=== PATIENT | female | born 1985 | race Caucasian/White ===

== ENCOUNTER 2017-08-16 17:21 | Emergency (ER) | payer SELFPAY ==
[2017-08-16 17:28] VITALS: BP 116/73; PULSE 103; RESP 22; TEMP 99; O2SAT 98
[2017-08-16 17:38] VITALS: BP 132/62; PULSE 103; RESP 18; O2SAT 100
[2017-08-16] MEDS ORDERED: VENTAER INH ×2 (17:50→18:45)
[2017-08-16 17:51] VITALS: O2SAT 99
[2017-08-16] MEDS: RESP: ALBUTEROL 2.5 MG/IPRATROPIUM 0.5 MG NEB (SCH) INH ×2 (17:57→17:58)
[2017-08-16] MEDS ORDERED: methylPREDNISolone SOD SUCC 125 MG/2 ML VIAL IV PUSH ONE (18:00)
[2017-08-16] MEDS ORDERED: SODIUM CHLORIDE 0.9% FLUSH 10 ML FLUSH IVF PRN (18:00)
--- NOTE | 2017-08-16 18:00 | PD ---
HPI Chief Complaint: Respiratory Symptoms Time Seen by Provider: 17:49 Travel History International Travel<30 days: No Contact w/Intl Traveler<30days: No Traveled to known affect area: No History of Present Illness HPI 32 y/o female presents with shortness of breath and wheezing over the past couple of days. She states she has been using her inhaler frequently without improvement. She states she currently does not have a primary doctor and does not know vertigo. She states she denies any fever or other concurrent complaints other than cough. She states she feels worse when she moves around. She denies other modifying factors. Quality is wheezing. Severity is progressive. Duration is over the past couple of days. PFSH Past Medical History Asthma: Yes Hepatitis: Yes (c) ?: Unknown Social History Alcohol Use: Yes (on occasion) Tobacco Use: Yes (1 ppd) Substance Use: Yes (THC on occasion) Allergies-Medications (Allergen,Severity, Reaction): Coded Allergies: Penicillins (Verified Allergy, Unknown, 08/16/17) Reported Meds & Prescriptions Reported Meds & Active Scripts Active Prednisone 50 Mg Tab 50 Mg PO DAILY 5 Days Ventolin Hfa 18 GM Inh (Albuterol Sulfate) 90 Mcg/Act Aer 1 Puff INH Q4H PRN Review of Systems Except as stated in HPI: all other systems reviewed are Neg Physical Exam Narrative GENERAL: 32 y/o female in no apparent distress SKIN: Focused skin assessment warm/dry. HEAD: Atraumatic. Normocephalic. EYES: Pupils equal and round. No scleral icterus. No injection or drainage. ENT: No nasal bleeding or discharge. Mucous membranes pink and moist. NECK: Trachea midline. CARDIOVASCULAR: Regular rate and rhythm. RESPIRATORY: No accessory muscle use. Inspiratory and expiratory wheezing bilaterally. GASTROINTESTINAL: Abdomen soft, non-tender, nondistended. MUSCULOSKELETAL: No obvious deformities. No clubbing. No cyanosis. No edema. NEUROLOGICAL: Awake and alert. No obvious cranial nerve deficits. Motor grossly within normal limits. Normal speech. PSYCHIATRIC: Appropriate mood and affect; insight and judgment normal. Data Data Last Documented VS Vital Signs Date Time Temp Pulse Resp B/P (MAP) Pulse Ox O2 Delivery O2 Flow Rate FiO2 08/16/17 18:05 18 98 Room Air 08/16/17 17:51 21 08/16/17 17:38 103 08/16/17 17:28 99.0 Orders Orders Complete Blood Count With Diff (08/16/17 17:52) Basic Metabolic Panel (Bmp) (08/16/17 17:52) Influenzae A/B Antigen (08/16/17 17:52) Iv Access Insert/Monitor (08/16/17 17:52) Ecg Monitoring (08/16/17 17:52) Oximetry (08/16/17 17:52) Chest, Pa & Lat (08/16/17 17:52) Sodium Chloride 0.9% Flush (Ns Flush) (08/16/17 18:00) Methylprednisolone So Succ Inj (Solumedr (08/16/17 18:00) Albuterol-Ipratropium Neb (Duoneb Neb) (08/16/17 18:00) Labs Laboratory Tests Test 08/16/17 18:07 White Blood Count 7.0 TH/MM3 Red Blood Count 4.64 MIL/MM3 Hemoglobin 13.4 GM/DL Hematocrit 39.7 % Mean Corpuscular Volume 85.5 FL Mean Corpuscular Hemoglobin 28.8 PG Mean Corpuscular Hemoglobin Concent 33.7 % Red Cell Distribution Width 13.2 % Platelet Count 303 TH/MM3 Mean Platelet Volume 8.4 FL Neutrophils (%) (Auto) 45.3 % Lymphocytes (%) (Auto) 39.9 % Monocytes (%) (Auto) 7.4 % Eosinophils (%) (Auto) 6.2 % Basophils (%) (Auto) 1.2 % Neutrophils # (Auto) 3.1 TH/MM3 Lymphocytes # (Auto) 2.8 TH/MM3 Monocytes # (Auto) 0.5 TH/MM3 Eosinophils # (Auto) 0.4 TH/MM3 Basophils # (Auto) 0.1 TH/MM3 CBC Comment DIFF FINAL Differential Comment Blood Urea Nitrogen 9 MG/DL Creatinine 0.58 MG/DL Random Glucose 84 MG/DL Calcium Level 8.5 MG/DL Sodium Level 144 MEQ/L Potassium Level 3.8 MEQ/L Chloride Level 113 MEQ/L Carbon Dioxide Level 24.6 MEQ/L Anion Gap 6 MEQ/L Estimat Glomerular Filtration Rate 120 ML/MIN MDM Medical Decision Making Medical Screen Exam Complete: Yes Emergency Medical Condition: Yes Medical Record Reviewed: Yes (Past history confirmed) Interpretation(s) CBC & BMP Diagram 08/16/17 18:07 Calcium Level 8.5 cxr no acute Differential Diagnosis Asthma, pneumonia, pneumothorax, URI Narrative Course We will check blood work, chest x-ray and dose with duonebs and Solu-Medrol and reevaluate ED workup with asthma exacerbation, patient denies any new complaints and states that they are feeling better. Patient happy with care, all questions answered. Patient knows that follow up is incumbent on them and to return to the emergency room immediately if new or worsening symptoms develop. Patient given strict return precautions, vitals reviewed and are normal, agrees to further workup as an outpatient. Diagnosis Primary Impression: Asthma exacerbation Qualified Codes: J45.901 - Unspecified asthma with (acute) exacerbation Patient Instructions: General Instructions Additional Instructions: return as needed, follow with primary this week, albuterol as needed Med/Other Pt SpecificInfo: Prescription(s) given Scripts Prednisone (Prednisone) 50 Mg Tab 50 MG PO DAILY for 5 Days, #5 TAB 0 Refills Prov: Marla Bourne MD 08/16/17 Albuterol 18 GM Inh (Ventolin Hfa 18 GM Inh) 90 Mcg/Act Aer 1 PUFF INH Q4H Y for SHORTNESS OF BREATH, #1 INHALER 0 Refills Prov: Marla Bourne MD 08/16/17 Disposition: 01 DISCHARGE HOME Condition: Stable Marla Bourne MD Aug 16, 2017 18:00
[2017-08-16 18:05] VITALS: RESP 18; O2SAT 98
[2017-08-16 18:25] LABS: AUTOMATED NEUTROPHIL # 3.1 TH/MM3 (1.8-7.7); BASOPHIL # 0.1 TH/MM3 (0-0.2); BASOPHIL % 1.2 % (0.0-2.0); EOSINOPHIL # 0.4 TH/MM3 (0-0.4); EOSINOPHIL % 6.2 % (0.0-4.0); HEMATOCRIT 39.7 % (35.0-46.0); HEMOGLOBIN 13.4 GM/DL (11.6-15.3); LYMPH % 39.9 % (9.0-44.0); LYMPHOCYTE # 2.8 TH/MM3 (1.0-4.8); MEAN CELL VOLUME 85.5 FL (80.0-100.0); MEAN CORPUSCULAR HEMOGLOBIN 28.8 PG (27.0-34.0); MEAN CORPUSCULAR HGB CONC 33.7 % (32.0-36.0); MEAN PLATELET VOLUME 8.4 FL (7.0-11.0); MONO % 7.4 % (0.0-8.0); MONOCYTE # 0.5 TH/MM3 (0-0.9); NEUT % 45.3 % (16.0-70.0); PLATELET COUNT 303 TH/MM3 (150-450); RED BLOOD COUNT 4.64 MIL/MM3 (4.00-5.30); RED CELL DISTRIBUTION WIDTH 13.2 % (11.6-17.2)
[2017-08-16 18:42] LABS: BICARBONATE 24.6 MEQ/L (21.0-32.0); CALCIUM 8.5 MG/DL (8.5-10.1); CREATININE 0.58 MG/DL (0.50-1.00)
[2017-08-16] MEDS ORDERED: PRED50 PO (18:45)
--- NOTE | 2017-08-16 18:58 | RADRPT ---
EXAM DATE/TIME: 08/16/2017 18:35 [facility] COMPARISON: No previous studies available for comparison. INDICATIONS : Shortness of breath and cough. MEDICAL HISTORY : None. SURGICAL HISTORY : None. ENCOUNTER: Initial ACUITY: 1 week PAIN SCORE: 0/10 LOCATION: Bilateral chest FINDINGS: PA and lateral views of the chest demonstrate the lungs to be symmetrically aerated without evidence of mass, infiltrate or effusion. The cardiomediastinal contours are unremarkable. Osseous structure s are intact. CONCLUSION: No acute disease. Ramin Mcrae MD on August 16, 2017 at 18:55 Board Certified Radiologist. This report was verified electronically.
[2017-08-16 19:28] VITALS: BP 116/69; PULSE 92; RESP 20; O2SAT 100
== END 2017-08-16 19:44 | disposition home or self-care (01) ==
LOC: NEPE 17:21
DX: J45.901 Unspecified asthma with (acute) exacerbation (principal); B19.20 Unspecified viral hepatitis C without hepatic coma; F17.200 Nicotine dependence, unspecified, uncomplicated; F12.90 Cannabis use, unspecified, uncomplicated
CPT/HCPCS: 71046; 80048; 85025; 87804; 94640; 94664; 96374; 99284; J2930

== ENCOUNTER 2017-09-09 11:43 | Emergency (ER) | payer OTHER ==
[~2017-09-09] VITALS: Ht 167.6 cm; Wt 50.0 kg
[~2017-09-09 11:43] MED LIST: PRED50 PO; VENTAER INH
[2017-09-09 11:56] VITALS: BP 119/75; PULSE 87; RESP 20; TEMP 98.3; O2SAT 100
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
== END 2017-09-09 15:25 | disposition left against medical advice (07) ==
LOC: NEPE 11:43
DX: S92.412A Displaced fracture of proximal phalanx of left great toe, initial encounter for closed fracture (principal); M77.32 Calcaneal spur, left foot; M77.31 Calcaneal spur, right foot; R10.9 Unspecified abdominal pain; J45.909 Unspecified asthma, uncomplicated; F17.200 Nicotine dependence, unspecified, uncomplicated; V43.52XA Car driver injured in collision with other type car in traffic accident, initial encounter; Z86.19 Personal history of other infectious and parasitic diseases; Z79.51 Long term (current) use of inhaled steroids
CPT/HCPCS: 71045; 73110; 73600; 73620; 73630; 84703; 99284

== ENCOUNTER 2017-09-09 13:04 | Emergency (ER) | payer SELFPAY | END 2017-09-09 13:56 | disposition left against medical advice (07) | LOC: NED 13:04 | DX: Z04.1 Encounter for examination and observation following transport accident (principal); Z53.21 Procedure and treatment not carried out due to patient leaving prior to being seen by health care provider | CPT/HCPCS: 99281 ==

== ENCOUNTER 2017-11-28 03:06 | Observation (INO) ==
[2017-11-28] MEDS ORDERED: Sod Chloride 0.9% Inj 1,000 ML IV.SIG ONE (03:18)
--- NOTE | 2017-11-28 03:27 | ED ---
HPI General Chief Complaint: Overdose Stated Complaint: OD Time Seen by Provider: 11/28/17 03:23 History of Present Illness HPI Narrative: 32-year-old female presents to the emergency department from home for complaint of not feeling well after overdosing on Unisom to "get high" . Patient reportedly took 100 Unisom tablets approximately an hour and a half prior to arrival to the emergency department. Patient did vomit once. Patient states there were no tablets or capsules in the emesis. No hematemesis no coffee-ground emesis. No chest pain no shortness of breath. No abdominal pain. Patient does have history of asthma but does not report any wheezing or exacerbation. Patient uses a friend's inhaler. Patient states that she does feel shaky and experiencing some visual hallucinations. Patient was incontinent of urine while vomiting but no seizure activity has been witnessed. Patient did report some noted balance disturbance. Patient denies any other concerns or complaints. Patient denies being suicidal. Related Data Allergies Allergy/AdvReac Type Severity Reaction Status Date / Time Penicillins Allergy Unknown Verified 09/09/17 12:01 Review of Systems Except as stated in HPI: all other systems reviewed are negative PMFSH Social History Social History Substance History: Active Abuse Smoking Status: Heavy tobacco smoker Tobacco Type: Cigarettes How Often Do You Have a Drink Containing Alcohol: Monthly or less Recent Travel in [facility] within the Last 8 Weeks: No Recent Out of Country Travel within the Last 8 Weeks: No Exam Narrative Exam Narrative: GENERAL: Well-developed well-nourished female no acute distress no respiratory distress; GCS 15 SKIN: Focused skin assessment warm/dry. HEAD: Atraumatic. Normocephalic. EYES: Pupils equal and round. No scleral icterus. No injection or drainage. ENT: No nasal bleeding or discharge. Mucous membranes pink and moist. NECK: Trachea midline. No JVD. CARDIOVASCULAR: Regular rate and rhythm. No murmur appreciated. RESPIRATORY: No accessory muscle use. Clear to auscultation. Breath sounds equal bilaterally. GASTROINTESTINAL: Abdomen soft, non-tender, nondistended. Hepatic and splenic margins not palpable. MUSCULOSKELETAL: No obvious deformities. No clubbing. No cyanosis. No edema. NEUROLOGICAL: Awake and alert. No obvious cranial nerve deficits. Motor grossly within normal limits. Normal speech. PSYCHIATRIC: Appropriate mood and affect; insight and judgment normal. Course Initial Documented Vital Signs Temperature 98.7 F 11/28/17 03:15 Pulse Rate 89 11/28/17 03:15 Respiratory Rate 17 11/28/17 03:15 Blood Pressure 138/86 11/28/17 03:15 Pulse Oximetry 100 11/28/17 03:15 Last Documented Vital Signs Temperature 98.7 F 11/28/17 03:15 Pulse Rate 82 11/28/17 08:00 Respiratory Rate 21 11/28/17 08:00 Blood Pressure 130/81 11/28/17 08:00 Pulse Oximetry 100 11/28/17 08:00 Sign Out Sign Out Data: Patient Sign Out occurred on 11/28/17 at 08:00. Patient's care was discussed, and care was transferred from Shira Flores MD to Ney Billy DO. Sign Out Comment: unasom overdose and cocaine use --follow up troponin I lactic acid and psych screen for disposition --care signed over to Dr Billy Last updated by Shira Flores MD at 11/28/17 07:59 Medical Decision Making MDM Narrative Medical decision making narrative: 32-year-old female with intentional overdose of Unisom in order to get high denies suicidal ideation patient playground monitor with continuous pulse oximetry IV access obtained specimens collected and sent for resulting EKG ordered shows sinus rhythm rate 84 incomplete right bundle branch block with QRS of 109 ms QT is 281 ms with a QTC of 322 ms. Patient given bolus of normal saline and poison control contacted -- reported ingesting 100 unasom/doxylamine 25 mg tablets. Repeat EKG shows no change with QRS 105 ms no prolongation of QTC sinus rhythm without ectopy Patient's blood sugar identified to be 63 on chemistry administered half amp D50 and ordered D5 normal saline infusion and repeat Accu-Chek at 1 hour 7 AM D50 was not administered as administered at this time and blood sugar is only 73 D5 normal saline with 20 mg of K infused in 100 cc an hour and additional half amp of D50 administered. Patient has been seen by psychiatry service and is not suicidal. Patient does not want to enter into a detox facility as she does want to discontinue substance abuse but does not want to go through detox program. This point time patient still remains very agitated and is adamant that she did take an excessive amount of Unisom she said she had 3 bottles of 80 tablets of Unisom it is unclear what she may have ingested due to her agitation and intermittent visual hallucinations will go ahead and admit her to medicine service to clear substance ingestion. Patient initially signed out for observation and to sleep off to oncoming physician Dr. Billy however as patient is now developing some increased visual hallucinations and agitation requiring additional Ativan 0.5 mg will admit to medicine service for observation so patient can clear intoxicants in her system under observed controlled environment. Call placed to [facility] service discussed with Dr Nguyen who will accept as OBS to his service. Differential Diagnosis Differential Diagnosis: Antihistamine overdose, arrhythmia, seizure, electrolyte disturbance Medical Records Medical records reviewed: Yes I reviewed the patient's medical records. Asthma history Lab Data Result diagrams: 11/28/17 04:30 11/28/17 03:30 Lab Results 11/28/17 11/28/17 11/28/17 Range/Units 03:30 03:30 03:30 WBC (4.0-11.0) th/mm3 RBC (4.00-5.30) mil/mm3 Hgb (11.6-15.3) gm/dL Hct (35.0-46.0) % MCV (80.0-100.0) fL MCH (27.0-34.0) pg MCHC (32.0-36.0) % RDW (11.6-17.2) % Plt Count (150-450) th/mm3 MPV (7.0-11.0) fL Neut % (Auto) (16.0-70.0) % Lymph % (Auto) (9.0-44.0) % [place] % (Auto) (0.0-8.0) % Eos % (Auto) (0.0-4.0) % Baso % (Auto) (0.0-2.0) % Neut # (Auto) (1.8-7.7) th/mm3 Lymph # (Auto) (1.0-4.8) th/mm3 [place] # (Auto) (0.0-0.9) th/mm3 Eos # (Auto) (0.0-0.4) th/mm3 Baso # (Auto) (0.0-0.2) th/mm3 WBC Differential Differential Comment PT (9.8-11.6) sec INR Ratio Sodium 144 (136-145) meq/L Potassium 3.3 L (3.5-5.1) meq/L Chloride 108 H (98-107) meq/L Carbon Dioxide 25.1 (21.0-32.0) meq/L Anion Gap 11 (5-15) meq/L BUN 11 (7-18) mg/dL Creatinine 0.70 (0.50-1.00) mg/dL Estimated GFR Greater than 89 (>89) mL/min Random Glucose 63 L (74-106) mg/dL Lactic Acid 2.1 H (0.4-2.0) mmol/L Calcium 8.7 (8.5-10.1) mg/dL Total Bilirubin 0.3 (0.2-1.0) mg/dL AST 20 (15-37) U/L ALT 20 (10-53) U/L Alkaline Phosphatase 75 (45-117) U/L Troponin I Less than 0.02 L (0.02-0.05) ng/mL Total Protein 7.8 (6.4-8.2) g/dL Albumin 3.7 (3.4-5.0) g/dL Lipase 149 (73-393) U/L Urine Color (Yellw/Straw) Urine Clarity (Clear) Urine pH (5.0-8.5) Ur Specific [place] (1.002-1.035) Urine Protein (Neg-Trace) mg/dL Urine Glucose (UA) (Negative) mg/dL Urine Ketones (Negative) mg/dL Urine Occult Blood (Negative) Urine Nitrate (Negative) Urine Bilirubin (Negative) Urine Urobilinogen (Less than 2) mg/dL Ur Leukocyte Esterase (Negative) Urine RBC (0-3) /hpf Urine WBC (0-5) /hpf Micro UA Comment Urine Culture Comments Salicylates Less than 1.7 L (2.8-20.0) mg/dL Urine Opiates Screen (Neg) Acetaminophen Less than 2.0 L (10.0-30.0) mcg/mL Ur Barbiturates Screen (Neg) Ur Amphetamines Screen (Neg) U Benzodiazepines Scrn (Neg) Urine Cocaine Screen (Neg) U Cannabinoids Screen (Neg) Serum Alcohol Less than 3 (0-5) mg/dL 11/28/17 11/28/17 11/28/17 Range/Units 03:40 03:40 04:30 WBC 7.3 (4.0-11.0) th/mm3 RBC 5.04 (4.00-5.30) mil/mm3 Hgb 13.5 (11.6-15.3) gm/dL Hct 41.2 (35.0-46.0) % MCV 81.8 (80.0-100.0) fL MCH 26.7 L (27.0-34.0) pg MCHC 32.7 (32.0-36.0) % RDW 14.2 (11.6-17.2) % Plt Count 254 (150-450) th/mm3 MPV 7.7 (7.0-11.0) fL Neut % (Auto) 68.8 (16.0-70.0) % Lymph % (Auto) 21.1 (9.0-44.0) % [place] % (Auto) 6.0 (0.0-8.0) % Eos % (Auto) 2.9 (0.0-4.0) % Baso % (Auto) 1.2 (0.0-2.0) % Neut # (Auto) 5.0 (1.8-7.7) th/mm3 Lymph # (Auto) 1.5 (1.0-4.8) th/mm3 [place] # (Auto) 0.4 (0.0-0.9) th/mm3 Eos # (Auto) 0.2 (0.0-0.4) th/mm3 Baso # (Auto) 0.1 (0.0-0.2) th/mm3 WBC Differential . Differential Comment Auto diff final PT (9.8-11.6) sec INR Ratio Sodium (136-145) meq/L Potassium (3.5-5.1) meq/L Chloride (98-107) meq/L Carbon Dioxide (21.0-32.0) meq/L Anion Gap (5-15) meq/L BUN (7-18) mg/dL Creatinine (0.50-1.00) mg/dL Estimated GFR (>89) mL/min Random Glucose (74-106) mg/dL Lactic Acid (0.4-2.0) mmol/L Calcium (8.5-10.1) mg/dL Total Bilirubin (0.2-1.0) mg/dL AST (15-37) U/L ALT (10-53) U/L Alkaline Phosphatase (45-117) U/L Troponin I (0.02-0.05) ng/mL Total Protein (6.4-8.2) g/dL Albumin (3.4-5.0) g/dL Lipase (73-393) U/L Urine Color Colorless (Yellw/Straw) Urine Clarity Clear (Clear) Urine pH 8.0 (5.0-8.5) Ur Specific [place] 1.004 (1.002-1.035) Urine Protein Negative (Neg-Trace) mg/dL Urine Glucose (UA) Negative (Negative) mg/dL Urine Ketones Negative (Negative) mg/dL Urine Occult Blood Negative (Negative) Urine Nitrate Negative (Negative) Urine Bilirubin Negative (Negative) Urine Urobilinogen Less than 2 (Less than 2) mg/dL Ur Leukocyte Esterase Moderate H (Negative) Urine RBC 1 (0-3) /hpf Urine WBC 29 H (0-5) /hpf Micro UA Comment Cath-culture ind Urine Culture Comments Cath-cult indicated Salicylates (2.8-20.0) mg/dL Urine Opiates Screen Neg (Neg) Acetaminophen (10.0-30.0) mcg/mL Ur Barbiturates Screen Neg (Neg) Ur Amphetamines Screen Neg (Neg) U Benzodiazepines Scrn Neg (Neg) Urine Cocaine Screen Pos H (Neg) U Cannabinoids Screen Neg (Neg) Serum Alcohol (0-5) mg/dL 11/28/17 11/28/17 11/28/17 Range/Units 04:30 07:33 07:33 WBC (4.0-11.0) th/mm3 RBC (4.00-5.30) mil/mm3 Hgb (11.6-15.3) gm/dL Hct (35.0-46.0) % MCV (80.0-100.0) fL MCH (27.0-34.0) pg MCHC (32.0-36.0) % RDW (11.6-17.2) % Plt Count (150-450) th/mm3 MPV (7.0-11.0) fL Neut % (Auto) (16.0-70.0) % Lymph % (Auto) (9.0-44.0) % [place] % (Auto) (0.0-8.0) % Eos % (Auto) (0.0-4.0) % Baso % (Auto) (0.0-2.0) % Neut # (Auto) (1.8-7.7) th/mm3 Lymph # (Auto) (1.0-4.8) th/mm3 [place] # (Auto) (0.0-0.9) th/mm3 Eos # (Auto) (0.0-0.4) th/mm3 Baso # (Auto) (0.0-0.2) th/mm3 WBC Differential Differential Comment PT 10.5 (9.8-11.6) sec INR 1.0 Ratio Sodium (136-145) meq/L Potassium (3.5-5.1) meq/L Chloride (98-107) meq/L Carbon Dioxide (21.0-32.0) meq/L Anion Gap (5-15) meq/L BUN (7-18) mg/dL Creatinine (0.50-1.00) mg/dL Estimated GFR (>89) mL/min Random Glucose (74-106) mg/dL Lactic Acid 1.1 (0.4-2.0) mmol/L Calcium (8.5-10.1) mg/dL Total Bilirubin (0.2-1.0) mg/dL AST (15-37) U/L ALT (10-53) U/L Alkaline Phosphatase (45-117) U/L Troponin I Less than 0.02 L (0.02-0.05) ng/mL Total Protein (6.4-8.2) g/dL Albumin (3.4-5.0) g/dL Lipase (73-393) U/L Urine Color (Yellw/Straw) Urine Clarity (Clear) Urine pH (5.0-8.5) Ur Specific [place] (1.002-1.035) Urine Protein (Neg-Trace) mg/dL Urine Glucose (UA) (Negative) mg/dL Urine Ketones (Negative) mg/dL Urine Occult Blood (Negative) Urine Nitrate (Negative) Urine Bilirubin (Negative) Urine Urobilinogen (Less than 2) mg/dL Ur Leukocyte Esterase (Negative) Urine RBC (0-3) /hpf Urine WBC (0-5) /hpf Micro UA Comment Urine Culture Comments Salicylates (2.8-20.0) mg/dL Urine Opiates Screen (Neg) Acetaminophen (10.0-30.0) mcg/mL Ur Barbiturates Screen (Neg) Ur Amphetamines Screen (Neg) U Benzodiazepines Scrn (Neg) Urine Cocaine Screen (Neg) U Cannabinoids Screen (Neg) Serum Alcohol (0-5) mg/dL Imaging Data Radiologist's impression: Chest X-Ray 11/28/17 03:18 CONCLUSION: No active disease. Discharge Plan Discharge Disposition Patient Disposition: 30 Still Patient Discharge Condition Condition: Stable Discharge Details Diagnosis: Drug overdose, Cocaine abuse, UTI (urinary tract infection), Hypokalemia Physicians Team ED Provider: Ney Billy Primary Care Provider: UNKNOWN, Status ED Status: Admitted Observation Patient
--- NOTE | 2017-11-28 04:03 | XR ---
EXAM DATE: 11/28/2017 3:55 AM EDT AGE/SEX: 32 years / Female INDICATIONS: . Possible overdose. CLINICAL DATA: This is the patient's initial encounter. Patient reports that signs and symptoms have been present for 1 day and indicates a pain score of 0/10. MEDICAL/SURGICAL HISTORY: None. None. COMPARISON: [facility] [place] AP, 09/09/2017. . FINDINGS: A single AP view of the chest demonstrates the lungs to be symmetrically aerated without evidence of mass, infiltrate or effusion. The cardiomediastinal contours are unremarkable. Osseous structures a re intact. CONCLUSION: No active disease. Electronically signed by: Ramin Mcrae MD 11/28/2017 4:02 AM EDT
[2017-11-28 04:05] LABS: Bilirubin,Urine Negative (Negative); Clarity,Urine Clear (Clear); Color,Urine Colorless (Yellw/Straw); Glucose,Urine (UA) Negative (Negative); Leukocyte Esterase,Urine Moderate (Negative); Nitrite,Urine Negative (Negative); Specific Gravity,Urine 1.004 (1.002-1.035)
[2017-11-28 04:15] LABS: Alanine Aminotransferase 20 U/L (10-53); Albumin 3.7 g/dL (3.4-5.0); Anion Gap 11 meq/L (5-15); Aspartate Aminotransferase 20 U/L (15-37); Blood Urea Nitrogen 11 mg/dL (7-18); Calcium 8.7 mg/dL (8.5-10.1); Carbon Dioxide 25.1 meq/L (21.0-32.0); Chloride 108 meq/L (98-107); Glomerular Filtration Rate Greater Than 89 mL/min (>89); Glucose,Random 63 mg/dL (74-106); Lipase 149 U/L (73-393); Potassium 3.3 meq/L (3.5-5.1); Sodium 144 meq/L (136-145)
[2017-11-28 04:19] LABS: Alkaline Phosphatase 75 U/L (45-117); Total Protein 7.8 g/dL (6.4-8.2)
[2017-11-28 04:48] LABS: Baso # (Auto) 0.1 th/mm3 (0.0-0.2); Baso % (Auto) 1.2 % (0.0-2.0); Eos # (Auto) 0.2 th/mm3 (0.0-0.4); Eos % (Auto) 2.9 % (0.0-4.0); Hematocrit 41.2 % (35.0-46.0); Hemoglobin 13.5 gm/dL (11.6-15.3); Lymph # (Auto) 1.5 th/mm3 (1.0-4.8); Lymph % (Auto) 21.1 % (9.0-44.0); Mean Corpuscular HGB Conc 32.7 % (32.0-36.0); Mean Corpuscular Hemoglobin 26.7 pg (27.0-34.0); Mean Corpuscular Volume 81.8 fL (80.0-100.0); Mean Platelet Volume 7.7 fL (7.0-11.0); Mono # (Auto) 0.4 th/mm3 (0.0-0.9); Neut % (Auto) 68.8 % (16.0-70.0); Platelet Count 254 th/mm3 (150-450); Red Blood Count 5.04 mil/mm3 (4.00-5.30); Red Cell Distribution Width 14.2 % (11.6-17.2); White Blood Count 7.3 th/mm3 (4.0-11.0)
[2017-11-28 04:54] LABS: Prothrombin Time 10.5 sec (9.8-11.6)
[2017-11-28 05:25] LABS: Amphetamine Screen,Urine Neg (Neg); Barbiturate Screen,Urine Neg (Neg); Cannabinoid Screen,Urine Neg (Neg); Cocaine Screen,Urine Pos (Neg)
[2017-11-28] MEDS ORDERED: Nitrofurantoin Monohydrate-Macrocrystal 100 MG Capsule PO ONE (05:31)
[2017-11-28 05:50] LABS: Opiate Screen,Urine Neg (Neg)
[2017-11-28] MEDS ORDERED: KCL 20 mEq/D5W/NaCl 0.9% Inj 1,000 ML IV.CONT SCH (08:15)
[2017-11-28] MEDS ORDERED: Bisacodyl 10 MG Supp RECTAL PRN (08:32)
[2017-11-28] MEDS: KCL 20 mEq/D5W/NaCl 0.45% Inj 1,000 ML IV.CONT SCH (10:12)
--- NOTE | 2017-11-28 14:38 | ECG ---
Date Performed: 11/28/2017 Time Performed: 06:09:00 PTAGE: 32 years EKG: Sinus rhythm INCOMPLETE RIGHT BUNDLE BRANCH BLOCK NONSPECIFIC ST & T-WAVE ABNORMALITY BORDERLINE ECG NO PREVIOUS TRACING DOCTOR: Lavon Slater Interpretating Date/Time 11/28/2017 14:36:59
--- NOTE | 2017-11-28 14:44 | ECG ---
Date Performed: 11/28/2017 Time Performed: 03:23:46 PTAGE: 32 years EKG: Sinus rhythm INCOMPLETE RIGHT BUNDLE BRANCH BLOCK NONSPECIFIC ST & T-WAVE ABNORMALITY BORDERLINE ECG NO PREVIOUS TRACING DOCTOR: Lavon Slater Interpretating Date/Time 11/28/2017 14:43:10
--- NOTE | 2017-11-28 16:03 | P.HP ---
History of Present Illness Primary Care Physician: UNKNOWN Chief Complaint: Not feeling well. History of Present Illness: Ms. Espinoza is a pleasant 32-year-old female with a history of illicit drug abuse who presented to the emergency department after overdosing on Unisom (diphenhydramine). She reportedly took over 100 tablets prior to coming to the emergency department. At the time of this interview, patient is sitting in the ER bed comfortably. She denies any chest pain, shortness of breath, fever or chills. Her speech is not very clear but answers questions appropriately. She reports nausea and vomiting but currently resolved. She had some visual hallucination while this interview was going on. She also mentioned that she took Xanax. - Diagnosis (1) Drug overdose Inpatient Certification: I certify that the inpatient services were ordered in accordance with Medicare regulations governing the order. This includes certification that hospital inpatient services are reasonable and necessary and in the case of services not specified as inpatient-only under 42 CFR 419.22(n), that they are appropriately provided as inpatient services in accordance to with the 2-midnight benchmark under 43 CFR 412.3(e) Review of Systems All other systems reviewed negative except as stated in HPI, other (Difficult to obtain due to patient's somewhat confused state. ) PMFSH - History History Provided By: Patient, Emergency Worker / EMT - Tobacco History Tobacco Use In Past 30 Days: Yes Smoking Status: Heavy tobacco smoker Tobacco Type: Cigarettes - Alcohol History How Often Do You Have a Drink Containing Alcohol: Monthly or less - Substance Use History Substance History: Active Abuse - Substance Use Type Heroin Route Used: Intravenously Comment: HEROIN, CRACK, AND MARIJUANA Methamphetamine Comment: Pt states she uses but tox was negative - Travel History Recent Travel in the [place] Within the Last 8 Weeks: No Recent Travel Out of the Country Within the Last 8 Weeks: No - Immunization History Tetanus Immunization: >5 Years Hx Influenza Vaccine This Season: No Medications and Allergies Active Medications: Active Medications Al Hydroxide/Mg Hydroxide (Milk Of Magnmatthew Liq) 30 ml PO Q12H PRN PRN Reason: Mild Constipation Bisacodyl (Dulcolax Supp) 10 mg RECTAL DAILY PRN PRN Reason: SEVERE CONSITIPATION Potassium Chloride/Dextrose/Sod Cl (D5w/1/2ns + Kcl 20 Meq Inj) 1,000 mls @ 100 mls/hr IV.CONT .Q10H MEHDI Last Admin: 11/28/17 10:12 Dose: 100 mls/hr Lactulose (Lactulose Liq) 30 ml PO DAILY PRN PRN Reason: SEVERE CONSITIPATION Sennosides (Senokot) 17.2 mg PO Q12H PRN PRN Reason: Moderate Constipation Allergies Allergy/AdvReac Type Severity Reaction Status Date / Time Penicillins Allergy Unknown Verified 09/09/17 12:01 Exam Vital signs: Vital Signs 11/28/17 03:15 11/28/17 03:22 11/28/17 03:25 Temperature 98.7 F Pulse Rate 89 89 Respiratory Rate 17 Blood Pressure 138/86 Pulse Oximetry 100 99 100 11/28/17 04:36 11/28/17 05:32 11/28/17 08:00 Temperature Pulse Rate 79 83 82 Respiratory Rate 17 18 21 Blood Pressure 140/68 113/66 130/81 Pulse Oximetry 100 99 100 11/28/17 12:00 11/28/17 15:38 Temperature Pulse Rate 78 74 Respiratory Rate 21 16 Blood Pressure 135/70 135/88 Pulse Oximetry 98 Intake & Output 11/27/17 11/28/17 11/28/17 18:59 06:59 18:59 Weight 49.895 kg Narrative: GENERAL: Alert, somewhat confused, NAD. SKIN: No rashes, ecchymoses or lesions. Warm and dry. HEAD: Atraumatic. Normocephalic. No temporal or scalp tenderness. EYES: Pupils equal round and reactive. No injection or drainage. ENT: Nose without bleeding, purulent drainage or septal hematoma. Airway patent. NECK: Trachea midline. No lymphadenopathy. Supple, nontender, no meningeal signs. CARDIOVASCULAR: Regular rate and rhythm without murmurs, gallops, or rubs. No JVD. RESPIRATORY: Clear to auscultation. Breath sounds equal bilaterally. No wheezes , rales, or rhonchi. GASTROINTESTINAL: Abdomen soft, non-tender, nondistended. No guarding. MUSCULOSKELETAL: Extremities without clubbing, cyanosis, or edema. NEUROLOGICAL: Awake and alert. Cranial nerves II through XII intact. No focal neurological deficits. Somewhat slurred speech. Results - Labs CBC & Chem 7: 11/28/17 04:30 11/28/17 03:30 Labs: Laboratory Results - last 24 hr 11/28/17 11/28/17 11/28/17 03:30 03:30 03:30 WBC RBC Hgb Hct MCV MCH MCHC RDW Plt Count MPV Neut % (Auto) Lymph % (Auto) [place] % (Auto) Eos % (Auto) Baso % (Auto) Neut # (Auto) Lymph # (Auto) [place] # (Auto) Eos # (Auto) Baso # (Auto) WBC Differential Differential Comment PT INR Sodium 144 Potassium 3.3 L Chloride 108 H Carbon Dioxide 25.1 Anion Gap 11 BUN 11 Creatinine 0.70 Estimated GFR Greater than 89 Random Glucose 63 L Lactic Acid 2.1 H Calcium 8.7 Total Bilirubin 0.3 AST 20 ALT 20 Alkaline Phosphatase 75 Troponin I Less than 0.02 L Total Protein 7.8 Albumin 3.7 Lipase 149 Urine Color Urine Clarity Urine pH Ur Specific [place] Urine Protein Urine Glucose (UA) Urine Ketones Urine Occult Blood Urine Nitrate Urine Bilirubin Urine Urobilinogen Ur Leukocyte Esterase Urine RBC Urine WBC Micro UA Comment Urine Culture Comments Salicylates Less than 1.7 L Urine Opiates Screen Acetaminophen Less than 2.0 L Ur Barbiturates Screen Ur Amphetamines Screen U Benzodiazepines Scrn Urine Cocaine Screen U Cannabinoids Screen Serum Alcohol Less than 3 11/28/17 11/28/17 11/28/17 03:40 03:40 04:30 WBC 7.3 RBC 5.04 Hgb 13.5 Hct 41.2 MCV 81.8 MCH 26.7 L MCHC 32.7 RDW 14.2 Plt Count 254 MPV 7.7 Neut % (Auto) 68.8 Lymph % (Auto) 21.1 [place] % (Auto) 6.0 Eos % (Auto) 2.9 Baso % (Auto) 1.2 Neut # (Auto) 5.0 Lymph # (Auto) 1.5 [place] # (Auto) 0.4 Eos # (Auto) 0.2 Baso # (Auto) 0.1 WBC Differential . Differential Comment Auto diff final PT INR Sodium Potassium Chloride Carbon Dioxide Anion Gap BUN Creatinine Estimated GFR Random Glucose Lactic Acid Calcium Total Bilirubin AST ALT Alkaline Phosphatase Troponin I Total Protein Albumin Lipase Urine Color Colorless Urine Clarity Clear Urine pH 8.0 Ur Specific [place] 1.004 Urine Protein Negative Urine Glucose (UA) Negative Urine Ketones Negative Urine Occult Blood Negative Urine Nitrate Negative Urine Bilirubin Negative Urine Urobilinogen Less than 2 Ur Leukocyte Esterase Moderate H Urine RBC 1 Urine WBC 29 H Micro UA Comment Cath-culture ind Urine Culture Comments Cath-cult indicated Salicylates Urine Opiates Screen Neg Acetaminophen Ur Barbiturates Screen Neg Ur Amphetamines Screen Neg U Benzodiazepines Scrn Neg Urine Cocaine Screen Pos H U Cannabinoids Screen Neg Serum Alcohol 11/28/17 11/28/17 11/28/17 04:30 07:33 07:33 WBC RBC Hgb Hct MCV MCH MCHC RDW Plt Count MPV Neut % (Auto) Lymph % (Auto) [place] % (Auto) Eos % (Auto) Baso % (Auto) Neut # (Auto) Lymph # (Auto) [place] # (Auto) Eos # (Auto) Baso # (Auto) WBC Differential Differential Comment PT 10.5 INR 1.0 Sodium Potassium Chloride Carbon Dioxide Anion Gap BUN Creatinine Estimated GFR Random Glucose Lactic Acid 1.1 Calcium Total Bilirubin AST ALT Alkaline Phosphatase Troponin I Less than 0.02 L Total Protein Albumin Lipase Urine Color Urine Clarity Urine pH Ur Specific [place] Urine Protein Urine Glucose (UA) Urine Ketones Urine Occult Blood Urine Nitrate Urine Bilirubin Urine Urobilinogen Ur Leukocyte Esterase Urine RBC Urine WBC Micro UA Comment Urine Culture Comments Salicylates Urine Opiates Screen Acetaminophen Ur Barbiturates Screen Ur Amphetamines Screen U Benzodiazepines Scrn Urine Cocaine Screen U Cannabinoids Screen Serum Alcohol - Imaging Impressions Chest X-Ray 11/28/17 03:18 CONCLUSION: No active disease. Caprini VTE Risk Assessment Caprini VTE Risk Assessment: No/Low Risk (score <= 1) Caprini Risk Assessment Model: Point Value = 1 Point Value = 2 Point Value = 3 Point Value = 5 Age 41-60 Minor surgery BMI > 25 kg/m2 Swollen legs Varicose veins or History of unexplained or recurrent spontaneous Oral contraceptives or hormone replacement Sepsis (< 1 month) Serious lung disease, including pneumonia (< 1 month) Abnormal pulmonary function Acute myocardial infarction Congestive heart failure (< 1 month) History of inflammatory bowel disease Medical patient at bed rest Age 61-74 Arthroscopic surgery Major open surgery (> 45 min) Laparoscopic surgery (> 45 min) Malignancy Confined to bed (> 72 hours) Immobilizing plaster cast Central venous access Age >= 75 History of VTE Family history of VTE Factor V Leiden Prothrombin [id number] Lupus anticoagulant Anticardiolipin antibodies Elevated serum homocysteine Heparin-induced thrombocytopenia Other congenital or acquired thrombophilia Stroke (< 1 month) Elective arthroplasty Hip, pelvis, or leg fracture Acute spinal cord injury (< 1 month) Prophylaxis Regimen: Total Risk Factor Score Risk Level Prophylaxis Regimen 0-1 Low Early ambulation 2 Moderate Order ONE of the following: *Sequential Compression Device (SCD) *Heparin 5000 units SQ BID 3-4 Higher Order ONE of the following medications: *Heparin 5000 units SQ TID *Enoxaparin/Lovenox 40 mg SQ daily (WT < 150 kg, CrCl > 30 mL/min) *Enoxaparin/Lovenox 30 mg SQ daily (WT < 150 kg, CrCl > 10-29 mL/min) *Enoxaparin/Lovenox 30 mg SQ BID (WT < 150 kg, CrCl > 30 mL/min) AND/OR *Sequential Compression Device (SCD) 5 or more Highest Order ONE of the following medications: *Heparin 5000 units SQ TID (Preferred with Epidurals) *Enoxaparin/Lovenox 40 mg SQ daily (WT < 150 kg, CrCl > 30 mL/min) *Enoxaparin/Lovenox 30 mg SQ daily (WT < 150 kg, CrCl > 10-29 mL/min) *Enoxaparin/Lovenox 30 mg SQ BID (WT < 150 kg, CrCl > 30 mL/min) AND *Sequential Compression Device (SCD) Assessment and Plan - Assessment (1) Drug overdose Code(s): T50.901A - Poisoning by unspecified drugs, medicaments and biological substances, accidental (unintentional), initial encounter Status: Acute - Plan Ms. Espinoza is a pleasant 32-year-old female with a history of illicit drug use who presented to the ED because she was not feeling well. She reportedly took 100 tablets of Unisom prior to coming to the hospital. During admission interview, patient also reported taking Xanax. Drug overdose -Unisom vs. Xanax. - UDS positive for Cocaine. Benzo negative, Salicylate less than 1.7, Alcohol less than 3, Acetaminophen less than 2.0. - Continue IV fluid, supportive care. Currently, patient is hemodynamically stable. Mild Hypokalemia - Continue D5+1/2NS+KCL @100cc/hour. Illicit drug abuse - Will pastoral counselor patient when she is more coherent. Full code. SCDs. (1) Drug overdose Qualifiers: Encounter type: initial encounter Injury intent: undetermined intent Qualified Code(s): T50.904A - Poisoning by unspecified drugs, medicaments and biological substances, undetermined, initial encounter
[2017-11-29] MEDS: KCL 20 mEq/D5W/NaCl 0.45% Inj 1,000 ML IV.CONT SCH (03:03)
[2017-11-29 07:33] LABS: Anion Gap 8 meq/L (5-15); Blood Urea Nitrogen 12 mg/dL (7-18); Calcium 9.1 mg/dL (8.5-10.1); Carbon Dioxide 25.1 meq/L (21.0-32.0); Chloride 107 meq/L (98-107); Glomerular Filtration Rate Greater Than 89 mL/min (>89); Glucose,Random 79 mg/dL (74-106); Sodium 140 meq/L (136-145)
--- NOTE | 2017-11-29 11:45 | P.PN ---
Subjective Interval history: Follow-up visit overdose Unisom (diphenhydramine), states she took the medication trying to get high because she did it before when she was in high school and made her feel her "high, and hallucinating." Patient seen and examined today. Reports she is doing well, drowsy. States she will not do it again. States she just tried doing the Unisom to get the "high, buzz." Denies SI, HI. Denies pain and discomfort. Denies SOB/ dyspnea. Denies chest pain, palpitations, headaches, dizziness. Denies fevers, chills, n/v/d. Denies hematuria, dysuria. Physical Exam Vital signs: Vital Signs 11/28/17 12:00 11/28/17 15:38 11/28/17 16:47 Temperature 98.8 F Pulse Rate 78 74 73 Respiratory Rate 21 16 16 Blood Pressure 135/70 135/88 142/77 H Pulse Oximetry 98 100 11/28/17 20:00 11/29/17 04:00 11/29/17 07:56 Temperature 98.6 F 98.5 F 97.3 F L Pulse Rate 71 64 58 L Respiratory Rate 16 16 17 Blood Pressure 113/70 98/55 L 109/55 L Pulse Oximetry 99 100 100 11/29/17 11:06 Temperature 98.8 F Pulse Rate 63 Respiratory Rate 16 Blood Pressure 112/68 Pulse Oximetry 100 Intake & Output 11/28/17 11/29/17 11/29/17 18:59 06:59 18:59 Intake Total 1750 / 1750 1000 / 1000 Balance 1750 / 1750 1000 / 1000 Intake: IV 1000 / 1000 1000 / 1000 D5W/1/2NS + KCL 20 mEq Inj 1, 1000 / 1000 000 ML @ 100 mls/hr IV.CONT . Q10H [facility] Rx#:[id number] Oral 750 / 750 Narrative: GENERAL: This is a thin appearing, well-developed patient, in no apparent distress. SKIN: Warm and dry. HEENT: Normocephalic. Pupils equal round and reactive. Under eye area dark. Nose without bleeding. Airway patent. NECK: Trachea midline. No JVD. Supple. CARDIOVASCULAR: Regular rate and rhythm without murmurs, gallops, or rubs. RESPIRATORY: Clear to auscultation. Breath sounds equal bilaterally. No wheezes , rales, or rhonchi. GASTROINTESTINAL: Abdomen soft, non-tender, nondistended. Bowel Sounds normoactive x4. MUSCULOSKELETAL: Extremities without clubbing, cyanosis, or edema. NEUROLOGICAL: Awake and alert. Oriented to time, place, person. No focal neuro deficit. Moves all extremities. Normal speech. Results - Labs CBC & Chem 7: 11/28/17 04:30 11/29/17 06:04 Laboratory Results - last 24 hr 11/28/17 11/28/17 11/28/17 07:33 18:52 20:32 Sodium Potassium Chloride Carbon Dioxide Anion Gap BUN Creatinine Estimated GFR POC Glucose 75 86 Random Glucose 61 L Calcium 11/29/17 11/29/17 06:04 08:06 Sodium 140 Potassium 4.0 Chloride 107 Carbon Dioxide 25.1 Anion Gap 8 BUN 12 Creatinine 0.73 Estimated GFR Greater than 89 POC Glucose 88 Random Glucose 79 Calcium 9.1 Microbiology 11/28/17 03:40 Catheterized Urine Urine Culture - Preliminary No growth in 24 hours Assessment and Plan - Assessment (1) Drug overdose Code(s): T50.901A - Poisoning by unspecified drugs, medicaments and biological substances, accidental (unintentional), initial encounter Status: Acute - Plan Patient is a 32-year-old female with a history of illicit drug use who presented to the ED because she was not feeling well. She reportedly took 100 tablets of Unisom prior to coming to the hospital. During admission interview, patient also reported taking Xanax. Drug overdose -Unisom vs. Xanax. -UDS positive for Cocaine. Benzo negative, Salicylate less than 1.7, Alcohol less than 3, Acetaminophen less than 2.0. -Supportive care. Currently, patient is hemodynamically stable. -Asymptomatic. Mild Hypokalemia -Received D5+1/2NS+KCL @100cc/hour. -Resolved. DC IVF Illicit drug abuse - Counselled patient. Verbalized understanding Full code. SCDs. Discharge patient to home Condition on discharge: Improved Regular Diet as tolerated Ad Stefani activity Rx written: None Follow-up with primary care physician Code Status: Full Code Discussed Condition With: Patient, Nursing, Dr. Orellana Discharge Planning: Plan to [place] home today. (1) Drug overdose Qualifiers: Encounter type: initial encounter Injury intent: undetermined intent Qualified Code(s): T50.904A - Poisoning by unspecified drugs, medicaments and biological substances, undetermined, initial encounter
== END 2017-11-29 16:46 | disposition home or self-care (01) ==
LOC: NEPC 03:06 → NEDA 03:06 → NEPGCP 03:06 → NEDA 15:50 → NEPGCP 16:06
PROVIDERS: ADMIT Internal Medicine; ATTEND Internal Medicine